=== PATIENT | female | born 1985 | race Hispanic/Latino ===

== ENCOUNTER 2022-02-25 15:58 | Emergency (ER) | payer SELFPAY ==
[2022-02-25] MEDS ORDERED: Lidocaine 1% (PF) 30 ML VIAL ONE (17:32)
[2022-02-25] MEDS ORDERED: Ketorolac Tromethamine 30 MG/ML VIAL ONE (17:36)
== END 2022-02-25 18:14 | disposition home or self-care (01) ==
LOC: ERS 15:58
DX: M62.830 Muscle spasm of back (principal); R51.9 Headache, unspecified
CPT/HCPCS: 93005; 96372; J1885; J2001